=== PATIENT | female | born 1985 | race Hispanic/Latino ===

== ENCOUNTER 2017-01-19 19:32 | Emergency (ER) | payer OTHER ==
[2017-01-19 20:11] VITALS: O2SAT 98
[2017-01-19] MEDS ORDERED: Sodium Chloride 0.9% 1,000 ML IV ONE (20:43)
[2017-01-19] MEDS ORDERED: Sodium Chloride 0.9% 1,000 ML ONE (21:04)
[2017-01-19 21:16] LABS: CHLORIDE 104 mmol/L (98-107); SODIUM 138 mmol/L (132-148)
[2017-01-19 21:17] LABS: POTASSIUM 3.9 mmol/L (3.6-5.2)
[2017-01-19 21:19] LABS: ALB/GLOB RATIO 1.2 (1.0-2.1); ALKALINE PHOSPHATASE 68 U/L (38-126); ALT/SGPT 32 U/L (9-52); AST/SGOT 22 U/L (14-36); BASO # 0.1 K/uL (0.0-0.2); BASO % 0.6 % (0.0-2.0); BILIRUBIN,TOTAL 0.5 mg/dL (0.2-1.3); BLOOD UREA NITROGEN 12 mg/dL (7-17); CARBON DIOXIDE 20 mmol/L (22-30); EOS # 0.2 K/uL (0.0-0.7); EOS % 1.4 % (0.0-4.0); GFR AFRICAN-AMERICAN > 60; GLUCOSE,RANDOM 84 mg/dL (65-105); MEAN CELL VOLUME 89.4 fL (81.0-99.0); MEAN CORPUSCULAR HEMOGLOBIN 29.2 pg (27.0-31.0); MEAN CORPUSCULAR HGB CONC 32.6 g/dL (33.0-37.0); MEAN PLATELET VOLUME 8.9 fL (7.2-11.7); MONO # 1.3 K/uL (0.0-0.8); MONO % 8.5 % (0.0-10.0); RED CELL DISTRIBUTION WIDTH 14.8 % (11.5-14.5); TOTAL PROTEIN 7.3 g/dL (6.3-8.3)
[2017-01-19 21:20] LABS: CALCIUM 9.1 mg/dl (8.6-10.4)
[2017-01-19 21:27] LABS: RBC URINE 6 /hpf (0-3); URINE BACTERIA RARE (<OCC); URINE BILIRUBIN NEGATIVE (NEGATIVE); URINE BLOOD 1+ (NEGATIVE); URINE COLOR Yellow (YELLOW); URINE GLUCOSE (UA) NORMAL (Normal); URINE KETONE NEGATIVE (NEGATIVE); URINE LEUKOCYTE ESTERASE 3+ Leu/uL (Negative); URINE PROTEIN NEGATIVE (NEGATIVE); URINE UROBILINOGEN NORMAL mg/dL (0.2-1.0); WBC URINE 276 /hpf (0-5)
--- NOTE | 2017-01-19 21:36 | C.PDOC ---
History Of Present Illness 31 year old female who presents to the ER with a complaint of left flank pain and dysuria. Patient saw BUILDER OPERATOR who diagnosed her with a UTI and started her on bactrim. Patient states she took one tablet today but the left flank pain and dysuria persists. Denies fever, chills, vomiting, or past Hx of UTIs. Time Seen by Provider: 01/19/17 20:42 Chief Complaint (Nursing): Female Genitourinary History Per: Patient History/Exam Limitations: no limitations Onset/Duration Of Symptoms: Days Current Symptoms Are (Timing): Still Present Quality Of Discomfort: Burning Associated Symptoms: Urinary Symptoms, Other (Left flank pain). denies: Fever, Chills, Vomiting Alleviating Factors: None Recent travel outside of the [place]: No Abnormal Vaginal Bleeding: No Past Medical History Reviewed: Historical Data, Nursing Documentation, Vital Signs Vital Signs: Last Vital Signs Temp 99.7 F H 01/19/17 20:06 Pulse 114 H 01/19/17 20:06 Resp 20 01/19/17 20:06 BP 119/86 01/19/17 20:06 Pulse Ox 98 01/19/17 22:24 - Medical History PMH: No Chronic Diseases Surgical History: No Surg Hx Family History: States: Unknown Family Hx - Social History Hx Alcohol Use: No Hx Substance Use: No - Immunization History Hx Tetanus Toxoid Vaccination: No Hx Influenza Vaccination: No Hx Pneumococcal Vaccination: No Review Of Systems Constitutional: Negative for: Fever, Chills Gastrointestinal: Negative for: Vomiting Genitourinary: Positive for: Dysuria Musculoskeletal: Positive for: Other (Left flank pain) Physical Exam - Physical Exam Appears: Non-toxic Skin: Normal Color, Warm, Dry Head: Atraumatic, Normacephalic Oral Mucosa: Moist Chest: Symmetrical, No Tenderness Cardiovascular: Rhythm Regular, No Murmur Respiratory: Normal Breath Sounds, No Rales, No Rhonchi, No Wheezing Gastrointestinal/Abdominal: Soft, No Tenderness Back: Other (Left flank tenderness) Neurological/Psych: Oriented x3, Normal Speech, Normal Cognition ED Course And Treatment - Laboratory Results Result Diagrams: 01/19/17 20:53 01/19/17 20:53 O2 Sat by Pulse Oximetry: 98 (Room air) Pulse Ox Interpretation: Normal Progress Note: Blood work and urinalysis ordered. IV fluids and toradol administered. Pt reports improved pain after meds, labs reviewed and d/w pt. Pt will continue PO Bactrim DS and underatands to return if worsening symptoms Reevaluation Time: 22:26 Reassessment Condition: Improved Disposition Counseled Patient/Family Regarding: Diagnosis, Need For Followup, Rx Given - Disposition Disposition: HOME/ ROUTINE Disposition Time: 22:22 Condition: STABLE Additional Instructions: Please follow up with PMD Continue bactrim Motrin for pain Increase fluids Return to ER if fever, vomiting, persisting or worsening sx Prescriptions: Ibuprofen [Motrin] 600 mg PO Q6H #30 tab Instructions: Urinary Tract Infection in Women (ED) Forms: [facility] (Burmese) - Clinical Impression Clinical Impression: UTI (urinary tract infection) - Scribe Statement The provider has reviewed the documentation as recorded by the Scribe Kun Dunlap All medical record entries made by the Scribe were at my direction and personally dictated by me. I have reviewed the chart and agree that the record accurately reflects my personal performance of the history, physical exam, medical decision making, and the department course for this patient. I have also personally directed, reviewed, and agree with the discharge instructions and disposition.
[2017-01-19 22:43] VITALS: BP 127/77; PULSE 70; RESP 16; TEMP 98.4
== END 2017-01-19 22:43 | disposition home or self-care (01) ==
LOC: C.ER 19:32
DX: N39.0 Urinary tract infection, site not specified (principal)
CPT/HCPCS: 80053; 81001; 84703; 85025; 87086; 96361; 96374; 99283; J1885; J7040

== ENCOUNTER 2017-10-31 18:23 | Emergency (ER) | payer OTHER ==
--- NOTE | 2017-10-31 19:55 | C.PDOC ---
History Of Present Illness 32 y/o female with no significant PMHx presents to the ED complaining of a cough for the past month and a half. Denies smoking. Associated with feeling short of breath on exertion as well as at rest. On examination, patient is sitting in stretcher with no acute respiratory distress, speaking in full sentences. Additionally patient reports she has not had a period in 5 months and this morning noticed some vaginal spotting. (-) test at home. Otherwise patient denies any fever, chest pain, dizziness, abdominal pain, nausea, vomiting, or other complaints. Time Seen by Provider: 10/31/17 19:42 Chief Complaint (Nursing): Female Genitourinary History Per: Patient History/Exam Limitations: no limitations Onset/Duration Of Symptoms: Days Current Symptoms Are (Timing): Still Present Past Medical History Reviewed: Historical Data, Nursing Documentation, Vital Signs Vital Signs: Last Vital Signs Temp 98.5 F 10/31/17 18:31 Pulse 93 H 10/31/17 18:31 Resp 20 10/31/17 18:31 BP 131/84 10/31/17 18:31 Pulse Ox 97 10/31/17 22:32 - Medical History PMH: No Chronic Diseases, Bronchitis Surgical History: No Surg Hx Family History: States: Unknown Family Hx - Social History Hx Tobacco Use: No Hx Alcohol Use: Yes Hx Substance Use: No - Immunization History Hx Tetanus Toxoid Vaccination: No Hx Influenza Vaccination: No Hx Pneumococcal Vaccination: No Review Of Systems Except As Marked, All Systems Reviewed And Found Negative. Constitutional: Negative for: Fever, Chills Cardiovascular: Negative for: Chest Pain Respiratory: Positive for: Cough, Shortness of Breath Gastrointestinal: Negative for: Nausea, Vomiting, Abdominal Pain Genitourinary: Positive for: Vaginal Bleeding Physical Exam - Physical Exam Appears: Non-toxic, No Acute Distress, Other (Obese female, speaking in full sentences) Skin: Normal Color, Warm, Dry Head: Atraumatic, Normacephalic Eye(s): bilateral: Normal Inspection, PERRL, EOMI Oral Mucosa: Moist Throat: Erythema (mild pharyngeal injection), No Exudate Neck: Normal ROM, Supple Chest: Symmetrical Cardiovascular: Rhythm Regular, Other (S1, S2 are wnl) Respiratory: Normal Breath Sounds (Lungs clear to auscultation), No Rales, No Rhonchi, No Wheezing Gastrointestinal/Abdominal: Soft, No Tenderness, No Mass, No Guarding, No Rebound Pelvic: Normal External Exam, No Vaginal Bleeding, No Cervical Motion Tenderness , No Mass Extremity: Bilateral: Atraumatic, Normal Color And Temperature, Normal ROM Pulses: Left Dorsalis Pedis: Normal, Right Dorsalis Pedis: Normal Neurological/Psych: Oriented x3, Normal Speech, Normal Cranial Nerves, Other ( No focal deficits) ED Course And Treatment - Laboratory Results Result Diagrams: 10/31/17 20:09 10/31/17 20:09 O2 Sat by Pulse Oximetry: 97 (RA) Pulse Ox Interpretation: Normal - Radiology CXR: Interpreted by Me, Viewed By Me CXR Interpretation: Yes: No Acute Disease - CT Scan/US pelvic/transvag US Other Rad Studies (CT/US): Read By Radiologist, Radiology Report Reviewed CT/US Interpretation: Name: DHAVAL LAZO Age: 32Years F Date: 10/31/2017. Requesting Physician: Tiff Marquez : 1985. [facility] Procedure Ordered As Accession Number of Images. US PELVIS COMP NON-OB PELVIS/ TRANSVAG US [id number] 0. US TRANSVAGINAL NON-OB PELVIS/TRANSVAG US [id number] 0. Provided Clinical History: heavy vag bleeding. EXAM: US Pelvis Complete, Transabdominal. CLINICAL HISTORY: 32 years old, female; Signs and symptoms; Other: Heavy vag bleed; Additional info: Heavy vag. bleeding. TECHNIQUE: Real-time transabdominal pelvic ultrasound (complete) with image documentation. COMPARISON: No relevant prior studies available. FINDINGS: Uterus/cervix: Unremarkable. Normal endometrial stripe thickness is 7 mm. There is a large subserosal fibroid in the anterior wall of the body of the uterus with decreased. echogenicity measuring 6.4 cm x 8.9 cm x 7.5 cm. There is a circumscribed echogenic mass with fluid noted centrally measuring 6.5 cm 4.4 cm x 7.2. cm. This finding appears to arise from the body of uterus and does not have characteristic. appearance of a fibroid. Therefore Additional evaluation of this finding with MRI of the pelvis is. recommended. The uterus measures 14.6 cm x 9.5 cm x 9.4 cm. Right ovary: Unremarkable. No mass. Normal blood flow. 3.6 cm x 2.4 cm x 2.8 cm. Left ovary: Is not visible. Free fluid: No free fluid. IMPRESSION: Large anterior wall uterine fibroid. Echogenic mass lower uterine segment unclear etiology MRI recommended. Negative RIGHT ovary. LEFT ovary is not visible. . EXAM: US Pelvis, Transvaginal. CLINICAL HISTORY: 32 years old, female; Signs and symptoms; Other: Heavy vag bleed; Additional info: Heavy vag. bleeding. TECHNIQUE: Real-time transvaginal pelvic ultrasound ( complete) with image documentation. Transvaginal. imaging was used for better evaluation of the endometrium and adnexa. COMPARISON: No relevant prior studies available. FINDINGS: Uterus/cervix: Unremarkable. Normal endometrial stripe thickness 6.8 mm. There is a large subserosal uterine fibroid in the anterior wall of the uterine fundus measuring 6.4 cm. x 8.8 cm 7.5 cm. The lower uterine segment shows a echogenic mass with a fluid collection centrally measuring 7.2 cm. x 5.4 cm x 5.7 cm. This finding appears to arise from the body of the uterus but does not have. characteristic appearance of a uterine fibroid. Additional evaluation is therefore recommended with pelvic MRI examination. Right ovary: Not seen on transvaginal examination. Left ovary: Not seen on transvaginal examination. Free fluid: No free fluid. IMPRESSION: 1. Large uterine fibroid anterior wall of the uterine fundus. 2. Complex mass lower uterine segment with echogenic and fluid components of unclear etiology. MRI pelvis recommended . 3. The ovaries are not visualized on the endovaginal sonogram. Thank you for allowing us to participate in the care of your patient. Dictated and Authenticated by: Wilberto Berrois MD. 10/31/2017 9:57 PM Eastern Time ([place] & [place]) Medical Decision Making Medical Decision Making: Impression: URI, Amenorrhea, possible dysfunctional uterine bleeding Initial Plan: --Routine blood work --Urine HCG --Urinalysis --Rapid strep test --Throat culture --Chest x-ray --Pelvic/Transvaginal US Progress/Updates: Labs reviewed, and are unremarkable. Awaiting ultrasound and x-ray results. Ultrasound findings discussed in detail with patient. Patient is requesting referral to new scanning tech to establish follow up with. CXR reviewed, and shows no acute disease. Patient is stable for discharge home. Disposition Counseled Patient/Family Regarding: Studies Performed, Diagnosis, Need For Followup - Disposition Referrals: Ynes Soriano MD [Staff Provider] - Disposition: HOME/ ROUTINE Disposition Time: 22:21 Condition: STABLE Instructions: Soft Tissue Sarcoma, Uterine Fibroids, Uterus Artery Embolization , Uterine Fibroid Removal (DC) Forms: [email or web address] (Korean) Print Language: PERUVIAN - POA Present On Arrival: None - Clinical Impression Clinical Impression: Uterine fibroid - Scribe Statement The provider has reviewed the documentation as recorded by the Scribe (Mattie Hayden) Provider Attestation: All medical record entries made by the Scribe were at my direction and personally dictated by me. I have reviewed the chart and agree that the record accurately reflects my personal performance of the history, physical exam, medical decision making, and the department course for this patient. I have also personally directed, reviewed, and agree with the discharge instructions and disposition.
[2017-10-31 20:20] LABS: BASO # 0.1 K/uL (0.0-0.2); BASO % 1.2 % (0.0-2.0); EOS # 1.2 K/uL (0.0-0.7); EOS % 13.1 % (0.0-4.0); HEMOGLOBIN 13.1 g/dL (11.0-16.0); LYMPH # 1.8 K/uL (1.0-4.3); MEAN CORPUSCULAR HGB CONC 33.2 g/dL (33.0-37.0); MEAN PLATELET VOLUME 8.7 fL (7.2-11.7); MONO % 11.1 % (0.0-10.0); NEUT # 4.8 K/uL (1.8-7.0); NEUT % 54.6 % (50.0-75.0); NRBC % 0.1 % (0.0-2.0); RBC 4.5 Mil/uL (3.80-5.20); RED CELL DISTRIBUTION WIDTH 14.2 % (11.5-14.5); WHITE BLOOD COUNT 8.8 K/uL (4.8-10.8)
[2017-10-31 20:32] LABS: ALB/GLOB RATIO 1.1 (1.0-2.1); ALBUMIN 3.7 g/dL (3.5-5.0); ALT/SGPT 32 U/L (9-52); AST/SGOT 26 U/L (14-36); BLOOD UREA NITROGEN 7 mg/dL (7-17); CALCIUM 8.9 mg/dl (8.6-10.4); GFR AFRICAN-AMERICAN > 60; GFR NON-AFRICAN AMERICAN > 60
[2017-10-31 20:34] LABS: MEAN CELL VOLUME 87.3 fL (81.0-99.0)
[2017-10-31 21:23] LABS: SQUAMOUS EPITHIAL < 1 /hpf (0-5); URINE BACTERIA RARE (<OCC); URINE BILIRUBIN NEGATIVE (NEGATIVE); URINE BLOOD 1+ (NEGATIVE); URINE CLARITY Clear (Clear); URINE COLOR Straw (YELLOW); URINE GLUCOSE (UA) NORMAL (Normal); URINE LEUKOCYTE ESTERASE NEG Leu/uL (Negative); URINE PROTEIN NEGATIVE (NEGATIVE); URINE UROBILINOGEN NORMAL mg/dL (0.2-1.0)
[2017-10-31 22:43] VITALS: BP 130/84; PULSE 94; RESP 16; TEMP 98.1
[2017-11-01 05:05] VITALS: O2SAT 97
--- NOTE | 2017-11-01 08:25 | US ---
HISTORY: heavy vag bleeding COMPARISON: None available. TECHNIQUE: Transabdominal and transvaginal FINDINGS: UTERUS: Measures 14.7 x 9.5 x 9.4 cm. Anterior intramural sub serosal uterine fibroid, 6.4 x 8.9 x 7.5 cm. Anterior to midline lower uterine segment there is an echogenic mass measuring 7.3 x 5.4 x 5.7 cm. Though largely solid, there is a fluid component to this mass. This could represent an ovarian dermoid or could represent an atypical pedunculated subserosal uterine fibroid. Consider further evaluation with computed tomography or MRI. ENDOMETRIUM: Measures 7 mm in diameter. Unremarkable. CERVIX: No cervical abnormality identified. RIGHT OVARY: Measures 3.6 x 2.4 x 2.8 cm. No solid mass. Normal flow. LEFT OVARY: Not visualize FREE FLUID: No significant free fluid noted. OTHER FINDINGS: None. IMPRESSION: Echogenic complex midline mass anterior to lower uterine segment. Possible dermoid tumor versus atypical pedunculated subserosal uterine fibroid. Recommend further evaluation with computed tomography or magnetic resonance imaging. Anterior intramural/ subserosal fibroid, 8.9 cm. No additional abnormality. Preliminary interpretation of this examination was reported by [facility] at 9:57 p.m. on 10/31/2017. There is concurrence of this report with the preliminary interpretation.
--- NOTE | 2017-11-01 08:58 | RAD ---
HISTORY: cough COMPARISON: No prior. TECHNIQUE: Chest PA and lateral FINDINGS: LUNGS: No active pulmonary disease. PLEURA: No significant pleural effusion identified. No pneumothorax apparent. CARDIOVASCULAR: Normal. OSSEOUS STRUCTURES: No significant abnormalities. VISUALIZED UPPER ABDOMEN: Normal. OTHER FINDINGS: None. IMPRESSION: No active disease.
== END 2017-10-31 22:42 | disposition home or self-care (01) ==
LOC: C.ER 18:23
DX: D25.2 Subserosal leiomyoma of uterus (principal)

== ENCOUNTER 2017-11-01 11:38 | Emergency (ER) | payer MEDICAID, OTHER ==
--- NOTE | 2017-11-01 12:06 | C.PDOC ---
History Of Present Illness 32 y/o FEMALE PRESENTS TO ED WITH INCREASED PELVIC PAIN, VAGINAL BLEEDING SINCE THIS MORNING. PATIENT WAS DISCHARGED LAST NIGHT S/P EVAL FOR DUB. PATIENT STATES INC VAG BLEED W HEAVY CLOTS, CRAMPING SINCE DC. KNOWN HISTORY OF FIBROIDS. LAST LMP 3-4 MONTHS AGO. EXAM MOD DIST NONTOXIC HEENT NO PALLOR ABD B/L LOWER ABD/PELVIC TEND SOFT NO RG REMAINDER NEG Time Seen by Provider: 11/01/17 11:52 Chief Complaint (Nursing): Female Genitourinary History Per: Patient History/Exam Limitations: no limitations Onset/Duration Of Symptoms: Days Current Symptoms Are (Timing): Still Present Past Medical History Reviewed: Historical Data, Nursing Documentation, Vital Signs Vital Signs: Last Vital Signs Temp 98.0 F 11/01/17 15:18 Pulse 79 11/01/17 15:18 Resp 20 11/01/17 15:18 BP 104/68 11/01/17 15:18 Pulse Ox 99 11/01/17 15:23 - Medical History PMH: Bronchitis Surgical History: Back Surgery Family History: States: No Known Family Hx - Social History Hx Tobacco Use: No Hx Alcohol Use: Yes Hx Substance Use: No - Immunization History Hx Tetanus Toxoid Vaccination: No Hx Influenza Vaccination: No Hx Pneumococcal Vaccination: No Review Of Systems Constitutional: Negative for: Fever, Chills Gastrointestinal: Negative for: Nausea, Vomiting, Abdominal Pain Genitourinary: Positive for: Vaginal Discharge, Vaginal Bleeding, Pelvic Pain. Negative for: Dysuria Skin: Negative for: Rash Physical Exam - Physical Exam Appears: Non-toxic, Other (In moderate distress) Skin: Warm, Dry, No Rash Head: Atraumatic, Normacephalic Eye(s): bilateral: Normal Inspection Oral Mucosa: Moist Cardiovascular: Rhythm Regular Respiratory: Normal Breath Sounds, No Rales, No Rhonchi, No Wheezing Gastrointestinal/Abdominal: Soft, Tenderness (bilateral lower abdominal and Pelvic), No Guarding, No Rebound Back: No CVA Tenderness, No Paraspinal Tenderness Extremity: Normal ROM, Capillary Refill (<2 seconds) Neurological/Psych: Oriented x3, Normal Speech, Normal Cognition ED Course And Treatment - Laboratory Results Result Diagrams: 11/01/17 12:43 11/01/17 12:43 O2 Sat by Pulse Oximetry: 99 (RA) Pulse Ox Interpretation: Normal Progress - Re-Evaluation Re-evaluation Note: 11/01/17 12:02 D/W DR BELEM MICHELLE FUR WEIGHER. AWARE OF ER FINDINGS. PREG STATUS CONFIRM, IF NEG SYMPTOMATIC TREATMENT, FU CLINIC. 11/01/17 15:22 APPEARS COMFORTABLE VSS. NPO SINCE LAST NIGHT. PENDING D/W DR BELEM MICHELLE 11/01/17 16:50 S/P EVAL DR PATRICIA, US REVIEWED. PROBABLE COMPLETE MISCARRIAGE. CLEARED FOR DC, METHERGINE, FU OUTPT - Data Reviewed Data Reviewed: Lab, Diagnostic imaging, Old records Disposition Counseled Patient/Family Regarding: Studies Performed, Diagnosis, Need For Followup - Disposition Referrals: YOUR,OBGYN [Other] Clinical Interviewer Service [Outside] [facility] at [facility] [Outside] Disposition: HOME/ ROUTINE Disposition Time: 16:51 Condition: IMPROVED Instructions: Miscarriage (DC) Forms: [facility] (Turks [place] Caicos Islander), Work/School/Gym Excuse - Clinical Impression Clinical Impression: Complete miscarriage - Scribe Statement The provider has reviewed the documentation as recorded by the Scribbenjy Arriaga All medical record entries made by the Scribe were at my direction and personally dictated by me. I have reviewed the chart and agree that the record accurately reflects my personal performance of the history, physical exam, medical decision making, and the department course for this patient. I have also personally directed, reviewed, and agree with the discharge instructions and disposition.
[2017-11-01] MEDS ORDERED: Sodium Chloride 0.9% 1,000 ML IV ONE (12:08)
[2017-11-01 12:47] LABS: HEMOGLOBIN 11.8 g/dL (11.0-16.0); MEAN CELL VOLUME 87.5 fL (81.0-99.0); MEAN CORPUSCULAR HEMOGLOBIN 29.4 pg (27.0-31.0); MEAN CORPUSCULAR HGB CONC 33.6 g/dL (33.0-37.0); MEAN PLATELET VOLUME 9.2 fL (7.2-11.7); RBC 4.02 Mil/uL (3.80-5.20); RED CELL DISTRIBUTION WIDTH 14.2 % (11.5-14.5); WHITE BLOOD COUNT 12.5 K/uL (4.8-10.8)
[2017-11-01 13:00] LABS: BLOOD UREA NITROGEN 7 mg/dL (7-17); GFR AFRICAN-AMERICAN > 60; GFR NON-AFRICAN AMERICAN > 60
--- NOTE | 2017-11-01 15:09 | US ---
HISTORY: VB R/O ECTOPIC COMPARISON: None available. TECHNIQUE: Transabdominal and transvaginal FINDINGS: UTERUS: Measures 14.1 x 8.5 x 9.4 cm. Anteverted . Large anterior intramural uterine body fibroid 8.1 x 6.1 x 7.3 cm. No other uterine mass. ENDOMETRIUM: Measures 14 mm in diameter. Unremarkable. CERVIX: No cervical abnormality identified. RIGHT OVARY: Measures 3.1 x 1.7 x 3.1 cm. No solid mass. Normal flow. LEFT OVARY: Measures 3.9 x 2.1 x 3.0 cm. No solid mass. Normal flow. FREE FLUID: No significant free fluid noted. OTHER FINDINGS: None. IMPRESSION: 14 mm endometrium. No fluid identified within the endometrial cavity. 8.1 cm anterior intramural uterine fibroid. No intrauterine gestation identified. In the absence of an intrauterine gestation, an ectopic must be considered in conjunction with elevated HCG levels.
[2017-11-01 17:12] VITALS: BP 97/66; PULSE 89; RESP 16; TEMP 98.6; O2SAT 95
== END 2017-11-01 17:28 | disposition home or self-care (01) ==
LOC: C.ER 11:38
DX: O03.9 Complete or unspecified spontaneous abortion without complication (principal)
CPT/HCPCS: 76830; 76856; 80048; 84702; 85027; 86850; 86900; 96361; 96372; 96374; 96375; 99285; J2210; J2270; J2405; J7030

== ENCOUNTER 2017-11-03 08:58 | Emergency (ER) | payer MEDICAID, OTHER ==
[2017-11-03 09:11] VITALS: TEMP 98.2
--- NOTE | 2017-11-03 10:21 | C.PDOC ---
Time Seen by Provider: 11/03/17 09:07 Chief Complaint (Nursing): Medical Clearance Past Medical History Vital Signs: Last Vital Signs Temp 98.2 F 11/03/17 09:08 Pulse 94 H 11/03/17 09:08 Resp 18 11/03/17 09:08 BP 119/79 11/03/17 09:08 Pulse Ox 98 11/03/17 09:08 - Medical History PMH: Bronchitis Surgical History: Back Surgery Family History: States: Unknown Family Hx - Social History Hx Tobacco Use: No Hx Alcohol Use: Yes Hx Substance Use: No - Immunization History Hx Tetanus Toxoid Vaccination: No Hx Influenza Vaccination: No Hx Pneumococcal Vaccination: No ED Course And Treatment O2 Sat by Pulse Oximetry: 98 Disposition Counseled Patient/Family Regarding: Studies Performed, Diagnosis, Need For Followup - Disposition Referrals: [facility] at [facility] [Outside] Disposition: HOME/ ROUTINE Disposition Time: 10:20 Condition: STABLE Additional Instructions: REPEAT BETA QUANT (HORMONE LEVEL) IN 1 WEEK RETURN TO ER IF YOU HAVE ANY CONCERNING SYMPTOMS Instructions: Miscarriage Forms: [employer] (Beninese) Print Language: TURKISH - POA Present On Arrival: None - Clinical Impression Clinical Impression: Complete miscarriage
[2017-11-03 10:28] VITALS: BP 103/70; PULSE 93; RESP 20
--- NOTE | 2017-11-03 10:34 | C.PDOC ---
History Of Present Illness 32-year-old female presents to the emergency department for repeat beta quant. Patient was seen in our ED and diagnosed with miscarriage, given methergine by our green building energy engineer (11/01). Patient notes that currently she has less pain and vaginal bleeding. She denies fever, nausea/vomiting, back pain, abdominal pain, dysuria. No other complaints at this time Time Seen by Provider: 11/03/17 09:07 Chief Complaint (Nursing): Medical Clearance History Per: Patient History/Exam Limitations: no limitations Current Symptoms Are (Timing): Better Severity: Mild Past Medical History Reviewed: Historical Data, Nursing Documentation, Vital Signs Vital Signs: Last Vital Signs Temp 98.2 F 11/03/17 10:26 Pulse 93 H 11/03/17 10:26 Resp 20 11/03/17 10:26 BP 103/70 11/03/17 10:26 Pulse Ox 98 11/03/17 18:11 - Medical History PMH: Bronchitis Surgical History: Back Surgery Family History: States: No Known Family Hx - Social History Hx Tobacco Use: No Hx Alcohol Use: Yes Hx Substance Use: No - Immunization History Hx Tetanus Toxoid Vaccination: No Hx Influenza Vaccination: No Hx Pneumococcal Vaccination: No Review Of Systems Constitutional: Negative for: Fever, Chills Cardiovascular: Negative for: Chest Pain, Palpitations Respiratory: Negative for: Shortness of Breath Genitourinary: Positive for: Vaginal Bleeding, Pelvic Pain. Negative for: Dysuria, Hematuria, Vaginal Discharge Musculoskeletal: Negative for: Back Pain Physical Exam - Physical Exam Appears: Well, Non-toxic, No Acute Distress Skin: Normal Color, Warm, Dry, No Rash Oral Mucosa: Moist Cardiovascular: Rhythm Regular Respiratory: Normal Breath Sounds, No Rales, No Rhonchi, No Wheezing Gastrointestinal/Abdominal: Normal Exam, Bowel Sounds, Soft, No Tenderness Neurological/Psych: Oriented x3 ED Course And Treatment O2 Sat by Pulse Oximetry: 98 (RA) Pulse Ox Interpretation: Normal Progress Note: Beta quant ordered and reviewed, has dropped appropriately (from approx 12,000 to 2884). Blood type is A+ (reviewed from prior visit), no need for rhogham. Patient instructed to have repeat beta quant in 1 week, and to follow up with her green building energy engineer within 1 week. She understands she should return to ED if she has any concerning symptoms. Disposition Counseled Patient/Family Regarding: Studies Performed, Diagnosis, Need For Followup - Disposition Referrals: [facility] at [facility] [Outside] Disposition: HOME/ ROUTINE Disposition Time: 10:25 Condition: STABLE Additional Instructions: REPEAT BETA QUANT (HORMONE LEVEL) IN 1 WEEK RETURN TO ER IF YOU HAVE ANY CONCERNING SYMPTOMS Instructions: Miscarriage Forms: [facility] (Croatian) Print Language: MALTESE - Clinical Impression Clinical Impression: Complete miscarriage - Scribe Statement The provider has reviewed the documentation as recorded by the Scribe (Julio Mcnally) All medical record entries made by the Scribe were at my direction and personally dictated by me. I have reviewed the chart and agree that the record accurately reflects my personal performance of the history, physical exam, medical decision making, and the department course for this patient. I have also personally directed, reviewed, and agree with the discharge instructions and disposition.
[2017-11-03 10:35] VITALS: O2SAT 98
== END 2017-11-03 10:26 | disposition home or self-care (01) ==
LOC: C.ER 08:58
DX: O03.9 Complete or unspecified spontaneous abortion without complication (principal)